=== PATIENT | female | born 1970 ===

== ENCOUNTER 2017-06-07 07:27 | Emergency (ER) | payer BC ==
[2017-06-07 07:37] VITALS: BP 151/89
--- NOTE | 2017-06-07 08:35 | RAD ---
Indication: Pain at the patella following direct injury 5 days ago. Comparison: No relevant prior exams available on the [facility] P[facility]. Technique: LEFT knee: AP, sunrise, lateral, tunnel views. Report: Negative for effusion, fracture, or malalignment. Minimal medial joint compartment osteophytosis. Negative for joint space narrowing. Unremarkable soft tissue contours. IMPRESSION: 1. No traumatic injury evident. 2. Kellgren and Rolly grade 1 osteoarthritis.
--- NOTE | 2017-06-07 11:56 | UC ---
Matt Edwards Nilda, scribed for JuanisMayra Campos on 06/07/17 at 0750 . Knee Pain HPI - HPI Summary HPI Summary: This patient is a 47 year old F presenting to [facility] [place] with a chief complaint of sudden onset constant sharp left knee pain that began two days ago. Pt notes she woke up with the pain. She states she may have accidentally twisted her knee while playing with her dogs at home, but cannot pinpoint what may have caused her pain. The patient rates the pain 7/10 in severity. Symptoms aggravated by movement and alleviated by rest. Patient reports ability to ambulate, left knee popping and locking, and left knee swelling that is progressively worsening. Patient denies bruising, fever, chills, diaphoresis, CP , SOB, recent known tick bites, and recent episode of flu-like symptoms that were not accompanied by sore throat and cough. Pt states dogs do not spend time in the tam. PMHx includes Premenstrual Dysphoric Disorder, RA, inflammatory arthritis, and fibromyalgia. - History of Current Complaint Chief Complaint: UCLowerExtremity Stated Complaint: LEFT KNEE INJURY Hx Obtained From: Patient Hx Last Menstrual Period: 06/04/17 Onset/Duration: Sudden Onset, Lasting Days - 2 days, Still Present Severity Currently: Severe Location Of Injury: left knee pain Pain Intensity: 7 Pain Scale Used: 0-10 Numeric Character: Sharp Aggravating Factor(s): Movement Alleviating Factor(s): Rest Associated Signs And Symptoms: Positive: Swelling. Negative: Bruising Able to Bear Weight: Yes - Allergies/Home Medications Allergies/Adverse Reactions: Allergies Allergy/AdvReac Type Severity Reaction Status Date / Time Paroxetine [From Paxil] Allergy See Comment Verified 06/07/17 07:37 Home Medications: Home Medications FLUoxetine CAP* [Prozac CAP*] 1 tab PO DAILY 06/07/17 [History Confirmed ] Meloxicam [Mobic] 1 tab PO BEDTIME 06/07/17 [History Confirmed 06/07/17] PMH/Surg Hx/FS Hx/Imm Hx GI/ History: Other - Premenstrual Dysphoric Disorder Other GI/ History: Premenstrual Dysphoric Disorder - Surgical History Surgical History: Yes Surgery Procedure, Year, and Place: Bone replacement L ear. Carpal tunnel bilat hands. Bilateral knee surg - Family History Known Family History: Positive: Cardiac Disease, Hypertension, Diabetes - Social History Occupation: Employed Full-time Lives: With Family Alcohol Use: None Substance Use Type: None Smoking Status (MU): Never Smoked Tobacco - Immunization History Most Recent Influenza Vaccination: 02/2017 Review of Systems Constitutional: Other - negative fever, chills, diaphoresis Respiratory: Other - negative SOB, recent episode of flu-like symptoms that were accompanied by sore throat and cough Cardiovascular: Other - negative CP Musculoskeletal: Other: - left knee pain, ability to ambulate, knee popping and locking, and knee swelling that is progressively worsening; negative knee bruising All Other Systems Reviewed And Are Negative: Yes Physical Exam Triage Information Reviewed: Yes Appearance: Well-Appearing, No Pain Distress, Well-Nourished Vital Signs: Initial Vital Signs Temp 98.6 F 06/07/17 07:33 Pulse 95 06/07/17 07:33 Resp 16 06/07/17 07:33 BP 151/89 06/07/17 07:33 Pulse Ox 98 06/07/17 07:33 Vital Signs Reviewed: Yes Eyes: Positive: Conjunctiva Clear. Negative: Discharge ENT: Positive: Hearing grossly normal, Other - normal voice Neck exam: Normal Neck: Positive: Supple Respiratory: Positive: Lungs clear, Normal breath sounds, No respiratory distress, No accessory muscle use Cardiovascular: Positive: RRR, No Murmur Abdomen Description: Positive: Nontender, Soft. Negative: Distended, Guarding Bowel Sounds: Positive: Present Musculoskeletal: Positive: Other: - Right Knee Exam: Swelling and tenderness along pt lateral joint line, medial greater than lateral. ROM is restricted in flexion to 60 degrees. Tenderness to palpation is elicited along the medial joint line over the patella and proximal tubule as well as the lateral and medial collateral ligaments. No pain elicited with medial or lateral stress. No ligamentous laxity. Distal Neurovascularly intact. Neurological: Positive: Alert, Muscle Tone Normal Psychological Exam: Normal Psychological: Positive: Age Appropriate Behavior Skin Exam: Normal Skin: Positive: Other - warm, dry, normal color Diagnostics - Radiology Knee XR Radiology Interpretation Completed By: Radiologist - A knee XR, per radiologist , reveals 1. No traumatic injury evident. 2. Kellgren and Rolly grade 1 osteoarthritis. ED physician has reviewed this radiology report and agrees. Knee Pain Course/Dx - Course Course Of Treatment: This patient is a 47 year old F presenting to [facility] [place] with a chief complaint of sudden onset constant sharp left knee pain that began two days ago. Pt notes she woke up with the pain. She states she may have accidentally twisted her knee while playing with her dogs at home, but cannot pinpoint what may have caused her pain. The patient rates the pain 7/10 in severity. Symptoms aggravated by movement and alleviated by rest. Patient reports ability to ambulate, left knee popping and locking, and left knee swelling that is progressively worsening. Patient denies bruising, fever, chills , diaphoresis, CP, SOB, recent known tick bites, and recent episode of flu-like symptoms that were not accompanied by sore throat and cough. Pt states dogs do not spend time in the tam. PMHx includes Premenstrual Dysphoric Disorder, RA, inflammatory arthritis, and fibromyalgia. A knee XR, per radiologist, reveals 1. No traumatic injury evident. 2. Kellgren and Rolly grade [address] Olivarez has reviewed this radiology report. Allergies reviewed. Medications reviewed. High blood pressure noted. Patient is stable and will be discharged and follow up from PCP and referral to accupuncture. The patient is agreeable with this plan. Dx of elevated blood pressure without diagnosis of hypertension, left knee pain, and left knee swelling. - Differential Dx/Diagnosis Provider Diagnoses: Elevated blood pressure without diagnosis of hypertension, Left knee pain, Left knee swelling Discharge - Discharge Plan Condition: Stable Disposition: HOME Patient Education Materials: Swollen Knee Joint (ED), Knee Pain (ED), Meniscus Tear (ED) Forms: *Work Release Referrals: Steve Cornejo MD [Medical Doctor] - As Soon As Possible Emely Radford NP [Primary Care Provider] - Additional Instructions: WE ARE SUSPICIOUS OF A MENISCAL TEAR BASED ON YOUR PHYSICAL EXAM. SO WE ARE GIVING YOU A PHYSICAL THERAPY REFERRAL AND AN OTHRO REFERRAL. WE HAVE ALSO DONE LAB WORK TO INVESTIGATE THE POSSIBILITY OF AN INFECTIOUS CAUSE OF YOUR KNEE PAIN AND SWELLING. Your blood pressure was elevated at this visit. That does not mean you have hypertension, it is probably due to your current condition. Please follow up with your primary care provider. The documentation as recorded by the Matt zayas Nilda accurately reflects the service I personally performed and the decisions made by , Mayra Olivarez DO.
[2017-06-07 12:41] LABS: Hematocrit 36 % (35-47); Hemoglobin 11.7 g/dl (12.0-16.0); Mean Corpuscular HGB Conc 33 g/dl (31-36); Mean Corpuscular Hemoglobin 30 pg (27-31); Mean Corpuscular Volume 92 fL (80-97); Mean Platelet Volume 7 um3 (7.4-10.4); Red Blood Count 3.92 10^6/ul (4.0-5.4); Red Cell Distribution Width 17 % (10.5-15); White Blood Count 5.1 10^3/ul (3.5-10.8)
[2017-06-07 14:01] LABS: Erythrocyte Sed Rate 49 mm/Hr (0-14)
== END 2017-06-07 09:00 | disposition home or self-care (01) ==
LOC: UCEAST 07:27
DX: M25.562 Pain in left knee (principal); R03.0 Elevated blood-pressure reading, without diagnosis of hypertension; M25.462 Effusion, left knee; M17.12 Unilateral primary osteoarthritis, left knee; F32.81 Premenstrual dysphoric disorder; Z88.8 Allergy status to other drugs, medicaments and biological substances
CPT/HCPCS: 36415; 85025; 85652; 86618; 99212; G0463